=== PATIENT | female | born 1935 | race Caucasian/White ===

== ENCOUNTER 2017-05-12 08:43 | Inpatient (IN) | payer OTHER ==
[2017-04-13 13:18] VITALS: BMI 22.0
--- NOTE | 2017-04-13 13:57 | PAT Medication Instructions ---
Service Date Apr 13, 2017. Current Home Medication List Amlodipine (Norvasc), 5 MG PO QAM Aspirin (Aspirin Ec), 81 MG PO HS Biotin (Biotin), 1,000 MCG PO BID Glucosamine-Chondroitin (Glucosamine/Chondroitin), 1 CAP PO BID Latanoprost 0.005% Oph (Xalatan 0.005% Oph), 1 DROP OPB HS Levothyroxine Sodium (Levothyroxine Sodium), 1 TAB PO QAM Multiple Vitamins W/ Minerals (Centrum Silver), 1 TAB PO QAM Pravastatin Sod (Pravastatin Sodium), 20 MG PO QPM Probiotic Product (Acidophilus), 1 CAP PO BID Raloxifene Hcl (Evista), 60 MG PO QAM Medication Instructions For Your Scheduled Surgery - Hold the following medications 2 weeks prior to surgery: Biotin (Biotin), 1,000 MCG PO BID Glucosamine-Chondroitin (Glucosamine/Chondroitin), 1 CAP PO BID - Hold the following medications the morning of surgery: Raloxifene Hcl (Evista), 60 MG PO QAM Multiple Vitamins W/ Minerals (Centrum Silver), 1 TAB PO QAM Probiotic Product (Acidophilus), 1 CAP PO BID - Take the following medications the morning of surgery with a sip of water OTHERWISE NOTHING TO EAT OR DRINK AFTER MIDNIGHT: Levothyroxine Sodium (Levothyroxine Sodium), 1 TAB PO QAM Amlodipine (Norvasc), 5 MG PO QAM - Take the following medications as scheduled the night before surgery: Pravastatin Sod (Pravastatin Sodium), 20 MG PO QPM Latanoprost 0.005% Oph (Xalatan 0.005% Oph), 1 DROP OPB HS Aspirin (Aspirin Ec), 81 MG PO HS Probiotic Product (Acidophilus), 1 CAP PO BID If you have any questions please call us at [phone] or [phone] or [phone]
--- NOTE | 2017-04-13 14:34 | DIAGNOSTIC IMAGING REPORT ---
CHEST PREADMISSION(PA/LAT) HISTORY: 81 years-old Female preadmission exam COMPARISON: Chest radiograph 06/26/2014 TECHNIQUE: PA and lateral views of the chest. FINDINGS: Fiduciary markers of the right midlung are seen within the region of the previously noted pulmonary nodule. No comparison chest CTs are available at time of dictation. Cardiomediastinal and hilar silhouettes are within normal limits. There is atherosclerosis of the aorta. Mild biapical pleural-parenchymal scarring is noted. No pneumothorax, pleural effusion or focal airspace consolidation. Endplate spurring is seen throughout the spine. IMPRESSION: No acute cardiopulmonary process. The above report was generated using voice recognition software. It may contain grammatical, syntax or spelling errors. Electronically signed by: Twin Pelletier M.D. 04/13/2017 2:33 PM Dictated Date/Time: 04/13/2017 2:31 PM
[2017-04-13 16:17] LABS: BASO % 0.2 %; BASO ABS # 0.01 K/uL (0-0.2); COMPLETE YES; EOS % 0.7 %; HEMATOCRIT 34.8 % (37-47); IG% 0.2 %; LYMPH ABS # 0.97 K/uL (1.2-3.4); MEAN CELL VOLUME 97.2 fL (80-100); MEAN CORPUSCULAR HEMOGLOBIN 32.7 pg (25-34); MEAN CORPUSCULAR HGB CONC 33.6 g/dl (32-36); MEAN PLATELET VOLUME 8.7 fL (7.4-10.4); MONO % 9.7 %; NEUT % 72.2 %; PLATELET COUNT 241 K/uL (130-400); RED BLOOD COUNT 3.58 M/uL (4.2-5.4); WHITE BLOOD COUNT 5.69 K/uL (4.8-10.8)
[2017-04-13 16:24] LABS: URINE APPEARANCE CLEAR (CLEAR); URINE BILIRUBIN NEG (NEG); URINE COLOR YELLOW; URINE EPITHELIAL CELL AUTO 20-30 /lpf (0-5); URINE NITRITE NEG (NEG); URINE SPECIFIC GRAVITY 1.021 (1.000-1.030); UROBILINOGEN NEG (NEG)
[2017-04-13 16:26] LABS: MANUAL MICROSCOPIC REQUIRED? NO; REVIEW REQ? NO
[2017-04-13 16:28] LABS: BUN/CREATININE RATIO 20.7 (10-20); CALCIUM 8.8 mg/dl (8.5-10.1); CREATININE 1.2 mg/dl (0.60-1.20); POTASSIUM 4.4 mmol/L (3.5-5.1)
[2017-04-13 16:29] LABS: INR 0.9 (0.9-1.1); PARTIAL THROMBOPLASTIN RATIO 0.9
[2017-04-14 06:05] LABS: ESTIMATED AVERAGE GLUCOSE 108 mg/dl; HA1C FLAG Normal (Normal)
--- NOTE | 2017-05-11 14:00 | HISTORY & PHYSICAL EXAMINATION ---
DATE OF ADMISSION: 05/12/2017 CHIEF COMPLAINT: Left hip pain. HISTORY OF PRESENT ILLNESS: The patient is an 81-year-old female with known osteoarthritis about her left hip. She had a previous successful right total hip arthroplasty approximately 2 years ago. She continues to have ongoing pain and disability with her left hip and now desires to proceed with left total hip arthroplasty. PAST MEDICAL HISTORY: Hypertension, hypercholesterolemia, hypothyroidism, osteoarthritis, spinal stenosis. PAST SURGICAL HISTORY: Right total hip arthroplasty as above. MEDICATIONS: Levothyroxine 50 mcg daily, amlodipine 5 mg daily, Evista 60 mg daily, pravastatin 20 mg daily, baby aspirin 81 mg daily, Centrum multivitamin daily, glucosamine and chondroitin 2 daily, Xalatan eyedrops 1 drop each eye at bedtime, biotin 1000 mcg 2 daily, acidophilus 2 daily. ALLERGIES: No known drug allergies. SOCIAL HISTORY: She lives alone. REVIEW OF SYSTEMS: Noncontributory. PHYSICAL EXAMINATION: GENERAL: Well-nourished, well-developed, thin elderly female who appears her stated age. HEENT: Normocephalic, atraumatic, extraocular movements intact, oropharynx pink and moist. NECK: Supple without adenopathy. LUNGS: Clear to auscultation bilaterally. HEART: Regular rate and rhythm. ABDOMEN: Soft, nontender, nondistended. EXTREMITIES: The upper extremity within normal limits. The left hip demonstrates limited range of motion. There is limitation of active and passive internal/external rotation with pain at end range. X-RAYS: X-rays were reviewed. She has [id number] arthritis of the left hip with complete loss of the joint space. There is osteophyte formation about the femoral head and acetabulum. ASSESSMENT: Left hip degenerative joint disease. PLAN: Risks versus benefits were discussed. Consent was obtained. The patient's primary care physician is Dr. Coon from [facility]. Will proceed with left total hip arthroplasty upon preoperative workup and medical clearance.
[~2017-05-12] VITALS: Ht 165.1 cm; Wt 61.9 kg
[2017-05-12] VITALS (8 sets, daily range): BP systolic 94–170; BP diastolic 54–78; PULSE 67–80; TEMP 36.4–36.8; O2SAT 96–100; Ht 165.1 cm; Wt 61.9 kg
[~2017-05-12 08:43] MED LIST: ACETAMINOPHEN 500 MG TAB PO SCH; AMLO-110 PO; ASPI81TA28 PO; BIOT1CAP8 PO; BUPIVACAINE 0.5 % 5 MG/1 ML PF 10ML VIAL ONE; CEFAZOLIN 1000MG/55 ML D5W 55 ML IV SCH; CeleBREX 200 MG CAP PO SCH; DEXAMETHASONE 4 MG TAB PO SCH; FAMOTIDINE 20 MG TAB PO SCH; GABAPENTIN 300 MG CAP PO SCH; GLUC250C PO; LACTATED RINGER'S 1000ML 1,000 ML IV SCH; LACTATED RINGER'S 1000ML 500 ML IV SCH; LACTATED RINGER'S 1000ML IV SCH; LATA0.009 OPB; LEVO50TA6 PO; METOCLOPRAMIDE HCL 10 MG TAB PO SCH; MULTCHW PO; PROB1CAP54 PO; PRVC/20 PO; RALO60TA12 PO; ROPIVACAINE 5MG/ML 30 ML 150 MG, BUPIVACAINE/EPINEPHR 0.5% MPF 30 ML, KETOROLAC TROMETH... INFIL SCH
--- NOTE | 2017-05-12 09:19 | History & Physical Bridge Note ---
H&P Re-Evaluation Bridge Note: I have examined the patient, reviewed the History & Physical and in the interval since the performance of the History & Physical I have noted the following changes of clinical significance: No changes noted
[2017-05-12] MEDS ORDERED: MIDAZOLAM HCL 1 MG/ML 2ML VIAL ONE (09:32)
[2017-05-12] MEDS ORDERED: FENTANYL CITRATE INJ 50 MCG/1 ML 2 ML VIAL ONE (09:32)
[2017-05-12] MEDS ORDERED: BACITRACIN 50000 UNIT VIAL ONE (09:56)
[2017-05-12] MEDS ORDERED: ORTHO JOINT ANESTHETIC ONE (09:56)
[2017-05-12] MEDS ORDERED: POVIDONE-IODINE OP SOLN 30 ML BTL ONE (09:56)
[2017-05-12] MEDS: TRANEXAMIC ACID INJ 1,000 MG in SODIUM CHLORIDE 0.9% 100ML 100 ML IV SCH ×2 (10:20→13:57)
[2017-05-12] MEDS ORDERED: PHENYLEPHRINE 100MCG/ML 5ML SYR IV PRN (10:45)
[2017-05-12] MEDS ORDERED: EpHEDrine SULFATE INJ 50 MG/ML AMP IV PRN (10:45)
[2017-05-12] MEDS ORDERED: ATROPINE SULFATE 0.1 MG/ML 5ML SYR IV PRN (10:45)
[2017-05-12] MEDS ORDERED: ONDANSETRON INJ 2 MG/ML 2 ML VIAL IV PRN ×2 (10:45→12:00)
[2017-05-12] MEDS ORDERED: HYDROmorphone INJ 2 MG/ML SYR/VIAL IV PRN (10:45)
[2017-05-12] MEDS ORDERED: PROPOFOL IV EMULSION 10 MG/ML 20 ML VIAL IV ONE (11:36)
[2017-05-12] MEDS ORDERED: MoRPHine SULFATE 2 MG/ML CARP IV PRN (12:00)
[2017-05-12] MEDS ORDERED: MAGNESIUM HYDROXIDE SUSP 30 ML UDC PO PRN (12:00)
[2017-05-12] MEDS ORDERED: OXYCODONE HCL IR 5 MG TAB (IMMEDIATE RELEASE) PO PRN (12:00)
[2017-05-12] MEDS ORDERED: ALUMINUM/MAGNESIUM/SIMETH (MAALOX MAX) 30 ML UDC PO PRN (12:00)
[2017-05-12] MEDS ORDERED: METOCLOPRAMIDE HCL INJ 5 MG/ML 2 ML VIAL IV PRN (12:00)
[2017-05-12] MEDS ORDERED: ZOLPIDEM TARTRATE 5 MG TAB PO PRN (12:00)
--- NOTE | 2017-05-12 12:09 | OPERATIVE REPORT ---
DATE OF OPERATION: 05/12/2017 PREOPERATIVE DIAGNOSIS: Osteoarthritis, left hip. POSTOPERATIVE DIAGNOSIS: Osteoarthritis, left hip. PROCEDURE: Left connective total hip arthroplasty. SURGEON: Dr. Humphreys. CATHEAD WORKER: Allan Estrada PA-C. ANESTHESIA: Spinal. COMPLICATIONS: None. IMPLANTS USED: Femoral size 3, acetabular size 54, stem size 2, femoral head -2.5 ceramic. CONDITION: To recovery room stable. PROCEDURE IN DETAIL: Following induction of adequate spinal anesthesia, the patient was placed in right lateral decubitus position and left Chanell-Langenbeck incision was made. Subcutaneous tissue was sharply dissected. Electrocautery used for hemostasis. The fascia was incised throughout the length of the wound and a granados scissor placed beneath the short external rotators. The pyriformis was tagged with #1 Vicryl. The short external rotators were divided from the posterior aspect of the femur using electrocautery. These were swept posteriorly. A T-capsulotomy incision was made and the hip was dislocated using a combination of flexion, adduction, and internal rotation. Exposure of the femoral neck with old-style Hohmann and a blunt Hohmann was carried out and a femoral rasp was utilized as a guide for making the appropriate level femoral neck cut. This bone fragment was removed and reserved on the back table. Next, attention was turned to the acetabulum where bone hook was used to retract the femur while the offset retractors were placed anterior and posteriorly. A double-angled Hohmann was placed in superior and anterior position exposing the acetabulum nicely. Acetabular labrum as well as posterior capsule elements were removed using a long knife and a long pickup. Fovea centralis was cleared of all soft tissue. Sequential reamings were carried up to a 54 and decision was made to proceed with impaction of a 54 trabecular metal cup. This was impacted and held using a single 35 mm bone screw. The acetabular liner was placed with 15 of elevated posterior wall in the superior and posterior position. Next, attention was turned to the femoral portion of the case where a Bovie and pickup was used to further clear short external rotators from their insertion on the femur. Box osteotome was used to gain access to the femoral canal and the T-handled rasp and a rattail rasp were used to further open and lateral the canal. Sequentially raspings were carried up to a 3 which gave good fit and fill of the proximal femur. A trial reduction was carried out and 3 offset femoral neck component was chosen as the size to be used. A -2.5 mm femoral head was impacted into position, +0 head was utilized. The trial reduction was stable in all degrees of rotation with no [id number] impingement. The hip was dislocated. The trial components were removed and the final femoral stem, neck, and femoral head combination were assembled on the back table and impacted into position. Hip was relocated. Range of motion checked once again successful and the wound was irrigated. The pyriformis repaired to the greater trochanter using #1 Vicryl [id number] suture. A Hemovac drain was placed and the fascia was closed using #1 Vicryl, subcutaneous tissue was closed using 0 Dexon, and skin was closed with renetta. Sterile dressing of Adaptic, 4 x 4's, ABDs, and foam tape was applied. The patient tolerated the procedure well. Due to the complex nature of the procedure, the entire surgery was performed with the operational assistance of Allan Estraad PA-C. The cement tester assistant, under direct supervision, was involved in the actual performance of all aspects of the surgical procedure including hemostasis, tissue retraction and incision, instrument management, patient positioning, and wound closure. I attest to the content of the Intraoperative Record and any orders documented therein. Any exception s are noted below.
--- NOTE | 2017-05-12 12:23 | Anesthesiology Progress Note ---
Anesthesia Post Op Note Date & Time May 12, 2017 at 12:22 Vital Signs Pain Intensity: 0 Vital Signs Past 12 Hours Date Time Temp Pulse Resp B/P (MAP) Pulse Ox O2 Delivery O2 Flow Rate FiO2 05/12/17 12:19 79 16 05/12/17 12:19 80 16 100 05/12/17 12:16 113/63 05/12/17 12:14 71 18 100 05/12/17 12:14 71 18 05/12/17 12:11 116/58 05/12/17 12:09 75 25 05/12/17 12:09 74 25 100 05/12/17 12:06 107/58 05/12/17 12:04 69 12 100 05/12/17 12:04 69 12 05/12/17 12:01 106/55 05/12/17 11:59 72 13 05/12/17 11:59 74 13 100 05/12/17 11:56 94/52 05/12/17 11:55 103/54 05/12/17 11:54 76 17 99 05/12/17 11:54 76 17 05/12/17 11:54 37.1 74 17 103/54 100 Mask 10 05/12/17 09:19 36.8 80 20 170/71 99 Room Air Notes Mental Status: alert / awake / arousable, participated in evaluation Pt Amnestic to Procedure: Yes Nausea / Vomiting: adequately controlled Pain: adequately controlled Airway Patency, RR, SpO2: stable & adequate BP & HR: stable & adequate Hydration State: stable & adequate Anesthetic Complications: no major complications apparent
--- NOTE | 2017-05-12 12:28 | DIAGNOSTIC IMAGING REPORT ---
LEFT PELVIS/UNILATERAL HIP 1 VIEW CLINICAL HISTORY: IN PACU - A/P PELVIS and LATERAL HIP INCLUDING ALL OF IMPLANT hip replacement COMPARISON: None. DISCUSSION: Evidence for total left hip arthroplasty. Good contact between prosthetic and underlying bone. Surgical drains are in position. Pre-existing total right hip replacement. IMPRESSION: Anatomic alignment status post total left hip replacement. The above report was generated using voice recognition software. It may contain grammatical, syntax or spelling errors. Electronically signed by: Henrik Mckay M.D. 05/12/2017 12:26 PM Dictated Date/Time: 05/12/2017 12:26 PM
[2017-05-12] MEDS ORDERED: MoRPHine SULFATE 4 MG/ML 1 ML CARP\\VIAL IV PRN (14:00)
[2017-05-12] MEDS: ACETAMINOPHEN 500 MG TAB PO SCH ×2 (14:42→22:23)
[2017-05-12] MEDS: D5W AND 1/2NSS + 20MEQ KCL 1,000 ML IV SCH ×2 (15:59→23:54)
[2017-05-12] MEDS: KETOROLAC TROMETHAMINE 15 MG/ML VIAL IV. SCH ×2 (16:06→22:22)
[2017-05-12] MEDS: CEFAZOLIN IV 1,000 MG in DEXTROSE 5% 50ML 50 ML IV SCH (18:23)
[2017-05-12] MEDS: FERROUS GLUCONATE 324 MG TAB PO SCH (18:24)
[2017-05-12] MEDS: LATANOPROST 0.005% OP SOLN 2.5 ML BTL OPB SCH (21:04)
[2017-05-12] MEDS: ASPIRIN 81 MG ECTAB PO SCH (21:06)
[2017-05-12] MEDS: DOCUSATE SODIUM 100 MG CAP PO SCH (21:06)
[2017-05-12] MEDS: PRAVASTATIN SOD 20 MG TAB PO SCH (21:06)
[2017-05-12] MEDS: PREGABALIN 75 MG CAP PO SCH (21:06)
[2017-05-13] MEDS: CEFAZOLIN IV 1,000 MG in DEXTROSE 5% 50ML 50 ML IV SCH (01:17)
[2017-05-13] MEDS: KETOROLAC TROMETHAMINE 15 MG/ML VIAL IV. SCH ×2 (03:32→09:41)
[2017-05-13 03:50] VITALS: BP 103/59; PULSE 76; TEMP 36.7; O2SAT 94
[2017-05-13] MEDS: ACETAMINOPHEN 500 MG TAB PO SCH ×3 (05:20→21:53)
[2017-05-13] MEDS: LEVOTHYROXINE 50 MCG TAB PO SCH (05:20)
[2017-05-13 07:07] LABS: COMPLETE YES; HEMATOCRIT 29.1 % (37-47); IG% 0.4 %; LYMPH % 3.8 %; LYMPH ABS # 0.56 K/uL (1.2-3.4); MEAN CELL VOLUME 95.1 fL (80-100); MEAN CORPUSCULAR HEMOGLOBIN 32.7 pg (25-34); MEAN CORPUSCULAR HGB CONC 34.4 g/dl (32-36); MEAN PLATELET VOLUME 8.5 fL (7.4-10.4); MONO % 7.3 %; NEUT % 88.5 %; PLATELET COUNT 198 K/uL (130-400); RED BLOOD COUNT 3.06 M/uL (4.2-5.4); WHITE BLOOD COUNT 14.59 K/uL (4.8-10.8)
[2017-05-13] MEDS ORDERED: DEXAMETHASONE INJ 10 MG in SYRINGE 0 ML IV SCH (07:30)
[2017-05-13 07:32] LABS: BUN/CREATININE RATIO 19.6 (10-20); CALCIUM 8.5 mg/dl (8.5-10.1); CREATININE 1.2 mg/dl (0.60-1.20); POTASSIUM 4.7 mmol/L (3.5-5.1)
[2017-05-13 07:39] VITALS: BP 144/71; PULSE 70; TEMP 36.6; O2SAT 94
--- NOTE | 2017-05-13 08:09 | Orthopedic Progress Note ---
Orthopedic Progress Note Date of Service May 13, 2017. Subjective Post OP Day: 1 Reports: feeling well Objective N/V intact, dressing C/D/I (Hemovac d/c'd), toes mobile Date Time Temp Pulse Resp B/P (MAP) Pulse Ox O2 Delivery O2 Flow Rate FiO2 05/13/17 07:39 36.6 70 16 144/71 (95) 94 Room Air 05/13/17 03:50 36.7 76 16 103/59 (74) 94 Room Air 05/13/17 00:15 Room Air 05/12/17 23:26 36.4 69 16 130/62 (84) 96 Room Air 05/12/17 20:10 36.5 69 16 94/54 (67) 96 Room Air 05/12/17 16:00 36.5 67 18 111/63 (79) 98 Nasal Cannula 2.0 05/12/17 16:00 Nasal Cannula 2.0 05/12/17 15:00 36.5 67 18 107/66 (80) 100 Nasal Cannula 2.0 05/12/17 13:05 Room Air 05/12/17 13:05 98 Room Air 2.0 05/12/17 13:00 36.6 73 16 123/68 (86) 99 Nasal Cannula 2.0 05/12/17 12:32 36.7 79 16 122/67 (71) 99 Nasal Cannula 2 Mask 05/12/17 12:30 79 19 131/78 (95) 98 Nasal Cannula 2.0 05/12/17 12:19 79 16 05/12/17 12:19 80 16 100 05/12/17 12:16 113/63 05/12/17 12:14 71 18 100 05/12/17 12:14 71 18 05/12/17 12:11 116/58 05/12/17 12:09 75 25 05/12/17 12:09 74 25 100 05/12/17 12:06 107/58 05/12/17 12:04 69 12 100 05/12/17 12:04 69 12 05/12/17 12:01 106/55 05/12/17 11:59 72 13 05/12/17 11:59 74 13 100 05/12/17 11:56 94/52 05/12/17 11:55 103/54 05/12/17 11:54 76 17 99 05/12/17 11:54 76 17 05/12/17 11:54 37.1 74 17 103/54 100 Mask 10 05/12/17 09:19 36.8 80 20 170/71 99 Room Air Laboratory Results 24 Hours: Test 05/13/17 06:35 White Blood Count 14.59 K/uL Red Blood Count 3.06 M/uL Hemoglobin 10.0 g/dL Hematocrit 29.1 % Mean Corpuscular Volume 95.1 fL Mean Corpuscular Hemoglobin 32.7 pg Mean Corpuscular Hemoglobin Concent 34.4 g/dl Platelet Count 198 K/uL Mean Platelet Volume 8.5 fL Neutrophils (%) (Auto) 88.5 % Lymphocytes (%) (Auto) 3.8 % Monocytes (%) (Auto) 7.3 % Eosinophils (%) (Auto) 0.0 % Basophils (%) (Auto) 0.0 % Neutrophils # (Auto) 12.90 K/uL Lymphocytes # (Auto) 0.56 K/uL Monocytes # (Auto) 1.07 K/uL Eosinophils # (Auto) 0.00 K/uL Basophils # (Auto) 0.00 K/uL Assessment & Plan Assessment: 81 yo female stable POD #1 s/p left MANJINDER Plan: 1. Med management 2. DVT prophylaxis- ASA, SCDs 3. PT/OT 4. D/C planning- home w/ HH
--- NOTE | 2017-05-13 08:13 | Anesthesiology Progress Note ---
Anesthesia Post Op Note Date & Time May 13, 2017 at 08:13 Vital Signs Pain Intensity: 6.0 Vital Signs Past 12 Hours Date Time Temp Pulse Resp B/P (MAP) Pulse Ox O2 Delivery O2 Flow Rate FiO2 05/13/17 07:39 36.6 70 16 144/71 (95) 94 Room Air 05/13/17 03:50 36.7 76 16 103/59 (74) 94 Room Air 05/13/17 00:15 Room Air 05/12/17 23:26 36.4 69 16 130/62 (84) 96 Room Air Notes Mental Status: alert / awake / arousable, participated in evaluation Pt Amnestic to Procedure: Yes Nausea / Vomiting: adequately controlled Pain: adequately controlled Airway Patency, RR, SpO2: stable & adequate BP & HR: stable & adequate Hydration State: stable & adequate Neuraxial Anesthesia: sensory block resolved Anesthetic Complications: no major complications apparent
[2017-05-13] MEDS: FERROUS GLUCONATE 324 MG TAB PO SCH ×3 (08:45→18:11)
[2017-05-13] MEDS: RALOXIFENE 60 MG TAB PO SCH (08:46)
[2017-05-13] MEDS: ASPIRIN 81 MG ECTAB PO SCH ×3 (08:46→20:36)
[2017-05-13] MEDS: DOCUSATE SODIUM 100 MG CAP PO SCH ×2 (08:46→20:36)
[2017-05-13] MEDS: MULTIVITAMIN TAB PO SCH (08:49)
[2017-05-13] MEDS: AMLODIPINE BESYLATE 5 MG TAB PO SCH (08:50)
[2017-05-13] MEDS: PANTOprazole SOD 40 MG TAB PO SCH (08:50)
[2017-05-13] MEDS: PREGABALIN 75 MG CAP PO SCH ×2 (08:52→20:37)
[2017-05-13] MEDS ORDERED: NURSING VERBAL MED ORDER ONE (09:45)
[2017-05-13 11:26] VITALS: BP 119/66; PULSE 75; TEMP 36.7; O2SAT 98
--- NOTE | 2017-05-13 14:44 | Discharge Instructions ---
Discharge Instructions Date of Service May 13, 2017. Admission Reason for Admission: Left Hip Osteoarthritis Discharge Discharge Diagnosis / Problem: Left hip arthritis Discharge Goals Goal(s): Decrease discomfort, Improve function Activity Recommendations Activity Limitations: as noted below Weightbearing Status: Left weightbearing (as tolerated) . Instructions / Follow-Up Instructions / Follow-Up ACTIVITY RECOMMENDATIONS: SELF CARE INSTRUCTIONS AFTER TOTAL HIP REPLACEMENT Until the incision and soft tissues around your hip have healed, there is a possibility that the hip prosthesis could dislocate. A. Observe the following precautions to prevent dislocation: 1. Don't bend your hip greater than 90 degrees. 2. Avoid crossing your legs or ankles while standing or lying. 3. Sit with your feet placed 6 inches apart. 4. When sitting, keep your knees below your hips. Sit on a firm surface, avoid deep, soft chairs and couches. Use an elevated toilet seat in the bathroom. 5. Don't bend over at the waist. Use a long handled shoehorn and a sock aid to help you put on your shoes and socks. A generalist can help you case picker objects that are too high or too low to reach. 6. Keep car riding to a minimum for at least one month after surgery. B. Your balance may be shaky for a while. Use crutches or a walker until directed by your doctor. C. Use hand rails when walking on stairs. D. Wear low heeled shoes with non-slip soles. E. Be sure that your floors are free of things that could trip you - throw rugs , electrical cords, small objects. Avoid wet and waxed floors, especially with crutches and canes. F. Try to walk several times a day with rest periods between. G. Continue with all the exercises taught to you in the hospital. Again, make walking a part of your daily routine. SPECIAL CARE INSTRUCTIONS: VERY IMPORTANT TO READ AND REVIEW A. You may still be at risk for phlebitis and blood clots. 1. Wear surgical stockings (JENNA hose) for 2 weeks after surgery to improve circulation and reduce swelling. 2. Take Aspirin 81mg twice daily for 4 weeks or as directed by your doctor. This is your blood thinner. 3. High risk patients may be prescribed a stronger blood thinner if necessary. 4. If you are on Coumadin normally, your family doctor/fur tinter should monitor your blood work. Expect a phone call the day of or the day after bloodwork is drawn to adjust your dosage. B. You must take antibiotics before having dental work, bladder, bowel and other surgery. Your doctor will provide you with a permanent card to carry describing precautions. C. Call [facility] if you have a fever, redness or swelling around the incision, cloudy drainage from incision, or sudden increase in pain in your hip, not relieved by your regular pain medication. D. Please call the office at if you have any concerns or questions about your operation or recovery. * YOU MAY SHOWER, NO TUB BATHS UNTIL CLEARED BY YOUR DOCTOR. * WEAR JENNA HOSE 20 HOURS PER DAY FOR 2 WEEKS. * YOU SHOULD USE A WALKER OR CRUTCHES FOR 2-4 WEEKS. THIS WILL HELP PREVENT STRAIN ON YOUR HIP MUSCLE AND ALLOW IT TO HEAL PROPERLY. YOU MAY WEAN TO A CANE TOLERATED. * MOST PATIENTS WILL HAVE HOME NURSING FOR THERAPY. IF YOU DECIDE TO DO OUTPATIENT PHYSICAL THERAPY, PLEASE SCHEDULE THIS 3 TIMES PER WEEK. Silverlon- This is a large adhesive bandage that contains silver ions. This helps your incision heal by fighting off bacteria and protecting it from the outside environment. You are permitted to shower with this dressing. This will remain on your incision for 7 days and then should be removed. Some visible blood or drainage through the dressing window is normal. If there is significant drainage or leaking noted before the 7 days notify your doctor's office immediately. Once removed, keep incision clean and dry. If there is any drainage or redness noted, please call your surgeon. ZIP CLOSURE - YOU HAVE THE ZIP CLOSURE SYSTEM ON YOUR WOUND INSTEAD OF KANDY. YOU WILL SEE THIS ONCE YOU REMOVE YOUR SILVERLON DRESSING NOTED ABOVE. THE ZIP CLOSURE SYSTEM WILL REMAIN ON YOUR WOUND FOR 7 MORE DAYS AND BE REMOVED IN THE OFFICE UNLESS OTHERWISE INSTRUCTED. YOU MAY SHOWER WITH THIS ON. NO DIRECT SHOWER PRESSURE TO THE WOUND. DO NOT SOAK THE WOUND. NO TUB BATHS. CALL THE OFFICE IF THE ZIP CLOSURE SYSTEM IS STARTING TO PEEL OFF. YOU SHOULD KEEP A SMALL DRESSING OVER THE ZIP CLOSURE SYSTEM TO PROTECT THE WOUND AND KEEP YOUR CLOTHES FROM CATCHING ON IT. IF THE WOUND IS DRY, CHANGE DRESSING EVERY OTHER DAY. IF YOU STILL HAVE SOME DRAINAGE, CHANGE THE DRESSING DAILY. FOLLOW UP VISIT: If appointment is not already scheduled: Please call [facility] to make a follow-up appointment for 2 weeks after your surgery at . Current Hospital Diet Patient's current hospital diet: Regular Diet Discharge Diet Recommended Diet: Regular Diet Procedures Procedures Performed: LEFT TOTAL HIP ARTHROPLASTY, UNCEMENTED Pending Studies Studies pending at discharge: no Laboratory Results Hemoglobin A1c Test 04/13/17 14:05 Range/Units Estimated Average Glucose 108 mg/dl Hemoglobin A1c 5.4 4.5-5.6 % Medical Emergencies . Who to Call and When: Medical Emergencies: If at any time you feel your situation is an emergency, please call 911 immediately. . Non-Emergent Contact Non-Emergency issues call your: Surgeon Call Non-Emergent contact if: temperature is above 101.5, your pain is not controlled, wound has increased drainage, wound has increased redness . "Provider Documentation" section prepared by Allan Estrada PA-C. . VTE Core Measure Inpt VTE Proph given/why not?: Other Anticoagulation (ASA), T.E.D. Stockings, SCD's [place] Drug Monitoring Program Search Results: patient reviewed within database, no issues identified
[2017-05-13 15:00] VITALS: BP 103/60; PULSE 71; TEMP 36.7; O2SAT 97
[2017-05-13] MEDS: PRAVASTATIN SOD 20 MG TAB PO SCH (20:36)
[2017-05-13] MEDS: LATANOPROST 0.005% OP SOLN 2.5 ML BTL OPB SCH (20:36)
[2017-05-13] MEDS: CeleBREX 200 MG CAP PO SCH (20:37)
[2017-05-13 22:57] VITALS: BP 130/62; PULSE 74; TEMP 36.8; O2SAT 95
[2017-05-14] MEDS: LEVOTHYROXINE 50 MCG TAB PO SCH (05:32)
[2017-05-14] MEDS: ACETAMINOPHEN 500 MG TAB PO SCH ×2 (05:33→14:02)
[2017-05-14 06:33] VITALS: BP 128/69; PULSE 82; TEMP 36.8; O2SAT 96
[2017-05-14 07:25] VITALS: BP 114/70; PULSE 80; TEMP 36.6; O2SAT 99
[2017-05-14] MEDS: DOCUSATE SODIUM 100 MG CAP PO SCH (09:36)
[2017-05-14] MEDS: CeleBREX 200 MG CAP PO SCH (09:38)
[2017-05-14] MEDS: PANTOprazole SOD 40 MG TAB PO SCH (09:38)
[2017-05-14] MEDS: ASPIRIN 81 MG ECTAB PO SCH (09:38)
[2017-05-14] MEDS: PREGABALIN 75 MG CAP PO SCH (09:38)
[2017-05-14] MEDS: FERROUS GLUCONATE 324 MG TAB PO SCH ×2 (09:38→12:11)
[2017-05-14] MEDS: MULTIVITAMIN TAB PO SCH (09:39)
[2017-05-14] MEDS: AMLODIPINE BESYLATE 5 MG TAB PO SCH (09:39)
[2017-05-14] MEDS: RALOXIFENE 60 MG TAB PO SCH (09:39)
[2017-05-14] MEDS ORDERED: RXC5 PO (12:40)
[2017-05-14] MEDS ORDERED: ASPI81TA28 PO (12:40)
--- NOTE | 2017-05-14 12:40 | Orthopedic Progress Note ---
Orthopedic Progress Note Date of Service May 14, 2017. Subjective Post OP Day: 2 Reports: feeling well, Denies: complaints, chest pain, SOB, nausea / vomiting, calf pain Objective calves soft nontender, N/V intact, dressing C/D/I, toes mobile, CMS intact Date Time Temp Pulse Resp B/P (MAP) Pulse Ox O2 Delivery O2 Flow Rate FiO2 05/14/17 07:30 Room Air 05/14/17 07:25 36.6 80 17 114/70 (85) 99 Room Air 05/14/17 06:33 36.8 82 18 128/69 (88) 96 Room Air 05/14/17 00:10 Room Air 05/13/17 22:57 36.8 74 18 130/62 (84) 95 Room Air 05/13/17 15:45 Room Air 05/13/17 15:00 36.7 71 18 103/60 (74) 97 Room Air Assessment & Plan Assessment: 81 yo female stable POD #2 s/p left MANJINDER Plan: 1. Med management 2. DVT prophylaxis- ASA, SCDs 3. PT/OT 4. D/C planning- home w/ HH today
[2017-05-14] MEDS ORDERED: ACET-24 PO (12:41)
[2017-05-14] MEDS ORDERED: CLB200 PO (12:41)
[2017-05-14 13:46] VITALS: BP 114/70; PULSE 80; TEMP 36.6; O2SAT 99
--- NOTE | 2017-05-19 00:54 | DISCHARGE SUMMARY ---
CHIEF COMPLAINT: Left hip pain. Please see complete history and physical examination. HOSPITAL COURSE: The patient underwent left total hip arthroplasty without complication. She tolerated the procedure well and was discharged to recovery room in stable condition. Her postop course was relatively uneventful. Her postoperative pain was reasonably well controlled with a combination of spinal anesthesia, intraoperative joint injection, IV, and oral pain medications. She was started on aspirin for DVT prophylaxis. She also utilized JENNA stockings and SCDs for additional prophylaxis. Her H&H was stable and did not require transfusion. Her surgical drain was discontinued on postoperative day 1, her surgical dressing will remain in place for approximately 7 days postoperative. She tolerated postoperative physical therapy reasonably well, where she was ambulating and transferring appropriately. She was observing all total hip precautions. She was discharged home on postop day 2. She will continue her physical therapy at home. She will continue her aspirin for DVT prophylaxis and follow up in our office in approximately 10-14 days for initial postop evaluation.
== END 2017-05-14 15:28 | disposition home health service (06) | DRG 470 ==
LOC: C.ACU 08:43 → C.MSW 09:14 → ENRESERV 12:37
PROC: 0SRS0J9 Replacement of Left Hip Joint, Femoral Surface with Synthetic Substitute, Cemented, Open Approach (ICD-10-PCS; principal; 2017-05-12 10:45)
PROC: 0SRB0JZ Replacement of Left Hip Joint with Synthetic Substitute, Open Approach (ICD-10-PCS; principal; 2017-05-12 10:45)
DX: M16.12 Unilateral primary osteoarthritis, left hip (principal); I10 Essential (primary) hypertension; H53.60 Unspecified night blindness; E03.9 Hypothyroidism, unspecified; Z79.82 Long term (current) use of aspirin